=== PATIENT | male | born 1940 | race Two or more races ===

== ENCOUNTER 2024-07-10 18:29 | Inpatient (IN) | payer OTHER ==
[~2024-07-10] VITALS: Ht 172.7 cm; Wt 64.9 kg
[2024-07-10] MEDS ORDERED: TDAP [DIPH/PERTUSSIS/TET] 0.5 ML VIAL IM ONE (19:17)
[2024-07-10] MEDS: IV NS 0.9% 1,000 ML BAG IV ONE (19:29)
[2024-07-10] MEDS: TDAP [DIPH/PERTUSSIS/TET] 0.5 ML VIAL IM ONE (19:29)
[2024-07-10] MEDS ORDERED: LIDOCAINE/PRILOCAINE (5GM) 5 GM TUBE TP ONE (19:42)
[2024-07-10] MEDS: LIDOCAINE/PRILOCAINE 1 EA KIT TP ONE (19:45)
[2024-07-10] MEDS ORDERED: NICARDIPINE IN DEXTROSE,ISO-OS 200 ML IV ONE ×2 (19:54→23:43)
[2024-07-10] MEDS: NICARDIPINE IN NACL, ISO-OSM 200 ML IV PRN (20:01)
[2024-07-10] MEDS ORDERED: LEVETIRACETAM (500MG) 500 MG/5 ML VIAL IV ONE (20:19)
[2024-07-10] MEDS: LEVETIRACETAM (500MG) 500 MG in IV NS 0.9% 100 ML IV STA (20:22)
[2024-07-10 20:25] LABS: BASOPHILS % (AUTO) 0.9 % (0.0-2.0); EOSINOPHILS # (AUTO) 0.1 K/uL (0.0-0.7); EOSINOPHILS % (AUTO) 2.4 % (0.0-6.0); HEMATOCRIT 44 % (39-51); LYMPHOCYTES # (AUTO) 0.6 K/uL (0.8-4.8); LYMPHOCYTES % (AUTO) 20.7 % (20.0-44.0); MEAN CORPUSCULAR HEMOGLOBIN 29 PG (26.0-33.0); MEAN CORPUSCULAR HGB CONC 32 g/dl (31.0-36.0); MEAN CORPUSCULAR VOLUME 92 fL (80-96); MONOCYTES # (AUTO) 0.3 K/uL (0.1-1.30); MONOCYTES % (AUTO) 8.6 % (2.0-12.0); NEUTROPHILS % (AUTO) 67.4 % (43.0-81.0); PLATELET COUNT (AUTO) 198 K/uL (150-450); RED CELL DISTRIBUTION WIDTH 14.7 % (11.5-15.0)
[2024-07-10 20:37] LABS: CALCIUM, SERUM 8.9 mg/dL (8.5-10.1); CARBON DIOXIDE 26 mmol/L (21-32); CHLORIDE 104 mmol/L (98-107); CREATININE 1.2 mg/dL (0.6-1.3); GLUCOSE 87 mg/dL (74-106); POTASSIUM 3.8 mmol/L (3.5-5.1); SODIUM SERUM 138 mmol/L (136-145); UREA NITROGEN, BLOOD 14 mg/dL (7-18)
[2024-07-10 20:47] LABS: INR 1.07 (0.91-1.10)
[2024-07-10 20:48] LABS: PARTIAL THROMBOPLASTIN TIME 24.6 SEC (24.3-34.3)
[2024-07-10] MEDS ORDERED: MAGNESIUM HYDROXIDE 30 ML UDC PO PRN (22:30)
[2024-07-10] MEDS ORDERED: Z GUARD REMEDY 4 OZ OINT TP PRN (22:30)
[2024-07-10] MEDS ORDERED: ONDANSETRON HCL/PF 4 MG/2 ML VIAL IVP PRN (22:30)
[2024-07-11] VITALS (15 sets, daily range): BP systolic 102–164; BP diastolic 49–90; TEMP 97.6–98.1; O2SAT 98–100
[2024-07-11] MEDS: NICARDIPINE IN DEXTROSE,ISO-OS 200 ML IV ONE (04:28)
[2024-07-11] MEDS ORDERED: PANTOPRAZOLE 40 MG TABLET.DR PO ONE (07:41)
[2024-07-11] MEDS: PANTOPRAZOLE 40 MG TABLET.DR PO SCH (07:45)
[2024-07-11 17:02] LABS: BASOPHILS % (AUTO) 0.8 % (0.0-2.0); EOSINOPHILS # (AUTO) 0.2 K/uL (0.0-0.7); EOSINOPHILS % (AUTO) 4.9 % (0.0-6.0); HEMATOCRIT 39 % (39-51); HEMOGLOBIN 12.8 g/dL (13.5-17.5); LYMPHOCYTES # (AUTO) 0.8 K/uL (0.8-4.8); LYMPHOCYTES % (AUTO) 20.6 % (20.0-44.0); MEAN CORPUSCULAR HEMOGLOBIN 29 PG (26.0-33.0); MEAN CORPUSCULAR HGB CONC 33 g/dl (31.0-36.0); MEAN CORPUSCULAR VOLUME 88 fL (80-96); MONOCYTES # (AUTO) 0.7 K/uL (0.1-1.30); MONOCYTES % (AUTO) 16.9 % (2.0-12.0); NEUTROPHILS # (AUTO) 2.2 K/uL (1.8-8.9); NEUTROPHILS % (AUTO) 56.8 % (43.0-81.0); PLATELET COUNT (AUTO) 202 K/uL (150-450); RED BLOOD CELL COUNT(AUTO) 4.42 MIL/uL (4.5-6.0); RED CELL DISTRIBUTION WIDTH 14.1 % (11.5-15.0); WHITE BLOOD COUNT (AUTO) 3.9 K/uL (4.3-11.0)
[2024-07-11 17:36] LABS: CALCIUM, SERUM 8.8 mg/dL (8.5-10.1); CARBON DIOXIDE 26 mmol/L (21-32); CHLORIDE 104 mmol/L (98-107); GLUCOSE 80 mg/dL (74-106); MAGNESIUM 1.9 mg/dL (1.8-2.4); PHOSPHORUS 3.3 mg/dL (2.5-4.9); POTASSIUM 3.8 mmol/L (3.5-5.1); SODIUM SERUM 137 mmol/L (136-145); UREA NITROGEN, BLOOD 13 mg/dL (7-18)
[2024-07-12] VITALS (9 sets, daily range): BP systolic 94–210; BP diastolic 50–88; TEMP 97.3–98.5; O2SAT 94–100
[2024-07-12 08:00] LABS: BASOPHILS % (AUTO) 0.6 % (0.0-2.0); EOSINOPHILS # (AUTO) 0.1 K/uL (0.0-0.7); EOSINOPHILS % (AUTO) 4.4 % (0.0-6.0); HEMATOCRIT 39 % (39-51); HEMOGLOBIN 13.1 g/dL (13.5-17.5); LYMPHOCYTES # (AUTO) 1.2 K/uL (0.8-4.8); LYMPHOCYTES % (AUTO) 34.9 % (20.0-44.0); MEAN CORPUSCULAR HEMOGLOBIN 29 PG (26.0-33.0); MEAN CORPUSCULAR HGB CONC 33 g/dl (31.0-36.0); MEAN CORPUSCULAR VOLUME 87 fL (80-96); MONOCYTES # (AUTO) 0.4 K/uL (0.1-1.30); MONOCYTES % (AUTO) 13.2 % (2.0-12.0); NEUTROPHILS # (AUTO) 1.6 K/uL (1.8-8.9); NEUTROPHILS % (AUTO) 46.9 % (43.0-81.0); PLATELET COUNT (AUTO) 219 K/uL (150-450); RED BLOOD CELL COUNT(AUTO) 4.48 MIL/uL (4.5-6.0); RED CELL DISTRIBUTION WIDTH 14.4 % (11.5-15.0); WHITE BLOOD COUNT (AUTO) 3.4 K/uL (4.3-11.0)
[2024-07-12 08:21] LABS: ALANINE AMINOTRANSFERASE 19 U/L (12-78); ALBUMIN 2.8 g/dL (3.4-5.0); ALKALINE PHOSPHATASE 79 U/L (46-116); ASPARTATE AMINOTRANSFERASE 21 U/L (15-37); BILIRUBIN,TOTAL 0.6 mg/dL (0.2-1.0); CALCIUM, SERUM 8.5 mg/dL (8.5-10.1); CARBON DIOXIDE 26 mmol/L (21-32); CHLORIDE 105 mmol/L (98-107); CREATININE 0.9 mg/dL (0.6-1.3); GLUCOSE 72 mg/dL (74-106); MAGNESIUM 1.8 mg/dL (1.8-2.4); PHOSPHORUS 2.8 mg/dL (2.5-4.9); POTASSIUM 3.8 mmol/L (3.5-5.1); SODIUM SERUM 139 mmol/L (136-145); TOTAL PROTEIN, SERUM 6.1 g/dL (6.4-8.2); UREA NITROGEN, BLOOD 14 mg/dL (7-18)
[2024-07-12] MEDS: IV NS 0.9% 1,000 ML IV PRN (09:12)
[2024-07-12] MEDS ORDERED: IOHEXOL-350 100 ML VIAL IV ONE ×2 (16:01→16:17)
[2024-07-12 16:56] LABS: BASOPHILS % (AUTO) 0.3 % (0.0-2.0); EOSINOPHILS % (AUTO) 0.7 % (0.0-6.0); HEMATOCRIT 44 % (39-51); HEMOGLOBIN 14.4 g/dL (13.5-17.5); LYMPHOCYTES # (AUTO) 0.7 K/uL (0.8-4.8); LYMPHOCYTES % (AUTO) 13.9 % (20.0-44.0); MEAN CORPUSCULAR HEMOGLOBIN 29 PG (26.0-33.0); MEAN CORPUSCULAR HGB CONC 33 g/dl (31.0-36.0); MEAN CORPUSCULAR VOLUME 89 fL (80-96); MONOCYTES # (AUTO) 0.5 K/uL (0.1-1.30); MONOCYTES % (AUTO) 9.2 % (2.0-12.0); NEUTROPHILS % (AUTO) 75.9 % (43.0-81.0); PLATELET COUNT (AUTO) 217 K/uL (150-450); RED CELL DISTRIBUTION WIDTH 14.4 % (11.5-15.0); WHITE BLOOD COUNT (AUTO) 5.3 K/uL (4.3-11.0)
[2024-07-12 17:02] LABS: CARBON DIOXIDE 21 mmol/L (21-32); CHLORIDE 100 mmol/L (98-107); GLUCOSE 165 mg/dL (74-106); POTASSIUM 3.4 mmol/L (3.5-5.1); SODIUM SERUM 135 mmol/L (136-145); UREA NITROGEN, BLOOD 14 mg/dL (7-18)
[2024-07-12 17:07] LABS: INR 1.12 (0.91-1.10); PARTIAL THROMBOPLASTIN TIME 27.1 SEC (24.3-34.3); PROTHROMBIN TIME 11.8 SECS (9.2-11.1)
[2024-07-12 17:36] LABS: CHOLESTEROL 229 mg/dL (<200); HDL CHOLESTEROL 78 mg/dL (40-60); LDL 127 mg/dL (0-99); TRIGLYCERIDES 83 mg/dL (30-150)
[2024-07-12] MEDS: METOPROLOL TARTRATE 25 MG TABLET PO SCH (18:58)
[2024-07-12] MEDS ORDERED: NIMODIPINE (30MG) 30 MG CAPSULE ONE (20:28)
[2024-07-12] MEDS: NIMODIPINE (30MG) 30 MG CAPSULE PO SCH (20:31)
[2024-07-12] MEDS: ATORVASTATIN 10 MG TABLET PO SCH (22:40)
[2024-07-13] VITALS (22 sets, daily range): BP systolic 97–189; BP diastolic 49–140; TEMP 97.5–98.9; O2SAT 92–99
[2024-07-13] MEDS: ASPIRIN EC 81 MG TABLET.DR PO SCH (06:53)
[2024-07-13] MEDS: MAG HYDROX/AL HYDROX/SIMETH 30 ML UDC PO PRN (20:16)
[2024-07-13] MEDS: ZOLPIDEM TARTRATE 5 MG TABLET PO PRN (23:22)
[2024-07-14] VITALS (14 sets, daily range): BP systolic 114–198; BP diastolic 62–102; TEMP 98.1–98.4; O2SAT 85–100
[2024-07-14 05:13] LABS: ALANINE AMINOTRANSFERASE 23 U/L (12-78); ALBUMIN 3.1 g/dL (3.4-5.0); ALKALINE PHOSPHATASE 91 U/L (46-116); ASPARTATE AMINOTRANSFERASE 33 U/L (15-37); BILIRUBIN,TOTAL 0.6 mg/dL (0.2-1.0); CALCIUM, SERUM 8.3 mg/dL (8.5-10.1); CARBON DIOXIDE 24 mmol/L (21-32); CHLORIDE 102 mmol/L (98-107); CREATININE 1.4 mg/dL (0.6-1.3); GLUCOSE 110 mg/dL (74-106); MAGNESIUM 1.9 mg/dL (1.8-2.4); PHOSPHORUS 2.2 mg/dL (2.5-4.9); POTASSIUM 3.2 mmol/L (3.5-5.1); SODIUM SERUM 138 mmol/L (136-145); TOTAL PROTEIN, SERUM 7.3 g/dL (6.4-8.2); UREA NITROGEN, BLOOD 23 mg/dL (7-18)
[2024-07-14 05:19] LABS: HEMATOCRIT 44 % (39-51); HEMOGLOBIN 14.1 g/dL (13.5-17.5); LYMPHOCYTES # (AUTO) 0.3 K/uL (0.8-4.8); LYMPHOCYTES % (AUTO) 2.7 % (20.0-44.0); MEAN CORPUSCULAR HEMOGLOBIN 28 PG (26.0-33.0); MEAN CORPUSCULAR HGB CONC 32 g/dl (31.0-36.0); MEAN CORPUSCULAR VOLUME 89 fL (80-96); MONOCYTES # (AUTO) 1.9 K/uL (0.1-1.30); MONOCYTES % (AUTO) 15.2 % (2.0-12.0); NEUTROPHILS # (AUTO) 10.1 K/uL (1.8-8.9); NEUTROPHILS % (AUTO) 82.1 % (43.0-81.0); PLATELET COUNT (AUTO) 199 K/uL (150-450); RED BLOOD CELL COUNT(AUTO) 4.95 MIL/uL (4.5-6.0); RED CELL DISTRIBUTION WIDTH 14.1 % (11.5-15.0); WHITE BLOOD COUNT (AUTO) 12.3 K/uL (4.3-11.0)
[2024-07-14] MEDS: ACETAMINOPHEN 325 MG TABLET PO PRN (08:07)
[2024-07-14] MEDS: LABETALOL HCL IV 100MG VIAL IV PRN (09:51)
[2024-07-14] MEDS: POTASSIUM CHLORIDE 20 MEQ TAB.PRT.SR PO SCH (10:11)
[2024-07-14 11:42] LABS: BAND % (MANUAL) 6 % (0.0-5.0); BASOPHILS % (MANUAL) 0 % (0.0-2.0); EOSINOPHILS % (MANUAL) 0 % (0-4); LYMPHOCYTES % (MANUAL) 2 % (16-48); MONOCYTES % (MANUAL) 17 % (0-11.0); NEUTROPHILS % (MANUAL) 75 (42-76)
[2024-07-14 11:43] LABS: ANISOCYTOSIS 1+; PLATELET ESTIMATE ADEQUATE
[2024-07-14] MEDS: K PHOS NEUTRAL 250 MG TABLET PO ONE (17:47)
[2024-07-15 04:20] VITALS: BP 160/90; TEMP 98.1; O2SAT 98
[2024-07-15 04:57] VITALS: BP 147/69; TEMP 98.1; O2SAT 98
[2024-07-15 05:21] VITALS: BP 147/69; TEMP 98.1; O2SAT 98
[2024-07-15 07:00] VITALS: BP 148/66; TEMP 97.9; O2SAT 97
[2024-07-15 07:00] LABS: BASOPHILS % (AUTO) 0.1 % (0.0-2.0); EOSINOPHILS % (AUTO) 0.3 % (0.0-6.0); HEMATOCRIT 44 % (39-51); HEMOGLOBIN 14.8 g/dL (13.5-17.5); LYMPHOCYTES # (AUTO) 0.3 K/uL (0.8-4.8); LYMPHOCYTES % (AUTO) 2.9 % (20.0-44.0); MEAN CORPUSCULAR HEMOGLOBIN 29 PG (26.0-33.0); MEAN CORPUSCULAR HGB CONC 34 g/dl (31.0-36.0); MEAN CORPUSCULAR VOLUME 87 fL (80-96); MONOCYTES # (AUTO) 1.1 K/uL (0.1-1.30); MONOCYTES % (AUTO) 11.6 % (2.0-12.0); NEUTROPHILS # (AUTO) 8.4 K/uL (1.8-8.9); NEUTROPHILS % (AUTO) 85.1 % (43.0-81.0); PLATELET COUNT (AUTO) 214 K/uL (150-450); RED BLOOD CELL COUNT(AUTO) 5.07 MIL/uL (4.5-6.0); RED CELL DISTRIBUTION WIDTH 14.4 % (11.5-15.0); WHITE BLOOD COUNT (AUTO) 9.8 K/uL (4.3-11.0)
[2024-07-15 07:26] LABS: ALBUMIN 2.4 g/dL (3.4-5.0); BILIRUBIN,TOTAL 0.8 mg/dL (0.2-1.0); CALCIUM, SERUM 8.5 mg/dL (8.5-10.1); CREATININE 1.2 mg/dL (0.6-1.3); MAGNESIUM 2.8 mg/dL (1.8-2.4); PHOSPHORUS 2.1 mg/dL (2.5-4.9); POTASSIUM 3.5 mmol/L (3.5-5.1); TOTAL PROTEIN, SERUM 6.8 g/dL (6.4-8.2)
[2024-07-15 16:00] VITALS: BP 160/93; TEMP 98.2; O2SAT 94
[2024-07-15] MEDS: K PHOS NEUTRAL 250 MG TABLET PO ONE (17:05)
[2024-07-15 20:00] VITALS: BP 102/67; TEMP 97.7; O2SAT 95
[2024-07-16] VITALS: BP 103/66; TEMP 97.9; O2SAT 96
[2024-07-16] MEDS ORDERED: DEXTROSE 50%-WATER 50 ML DISP.SYRIN ONE (03:48)
[2024-07-16] MEDS ORDERED: ATROPINE SULFATE 1 MG/10 ML DISP.SYRIN IV ONE (04:09)
[2024-07-16 08:08] LABS: PTH, INTACT 68 pg/mL (15-65)
[2024-07-17 15:11] LABS: *SPE A/G RATIO 0.7 (0.7-1.7); *SPE ALBUMIN 2.3 g/dL (2.9-4.4); *SPE ALPHA-1-GLOBULIN 0.6 g/dL (0.0-0.4); *SPE GLOBULIN, TOTAL 3.3 g/dL (2.2-3.9); *SPE M-SPIKE 0.1 g/dL (Not Observed); *SPE PROTEIN TOTAL 5.6 g/dL (6.0-8.5); *SPEGAMMA GLOBULIN 0.7 g/dL (0.4-1.8)
== END 2024-07-16 04:10 | DRG 83 ==
LOC: ER 18:58 → ICU 07-11 05:44 → TELE1 07-11 15:30 → ICUOV 07-12 21:31 → ICU 07-13 16:23 → TELE 07-14 11:03
PROVIDERS: ADMIT Student in an Organized Health Care Education/Training Program; ATTEND Nurse Practitioner Acute Care
PROC: 0BH17EZ Insertion of Endotracheal Airway into Trachea, Via Natural or Artificial Opening (ICD-10-PCS; principal; 2024-07-16)
PROC: 5A12012 Performance of Cardiac Output, Single, Manual (ICD-10-PCS; 2024-07-16)
PROC: 5A12012 Performance of Cardiac Output, Single, Manual (ICD-10-PCS; 2024-07-16)
PROC: 0BH17EZ Insertion of Endotracheal Airway into Trachea, Via Natural or Artificial Opening (ICD-10-PCS; 2024-07-16)
DX: S06.5X9A Traumatic subdural hemorrhage with loss of consciousness of unspecified duration, initial encounter (principal); N17.9 Acute kidney failure, unspecified; S06.6X9A Traumatic subarachnoid hemorrhage with loss of consciousness of unspecified duration, initial encounter; W03.XXXA Other fall on same level due to collision with another person, initial encounter; Y04.0XXA Assault by unarmed brawl or fight, initial encounter; G93.89 Other specified disorders of brain; D69.6 Thrombocytopenia, unspecified; Z86.73 Personal history of transient ischemic attack (TIA), and cerebral infarction without residual deficits; E87.6 Hypokalemia; M89.8X9 Other specified disorders of bone, unspecified site; Y92.512 Supermarket, store or market as the place of occurrence of the external cause
CPT/HCPCS: 36415; 70450-TC; 70496-TC; 70498-TC; 71045-TC; 76770-TC; 80048-TC; 80053-TC; 80061-TC; 82550-TC; 82962-TC; 83735-TC; 83970; 84100-TC; 84155; 84165; 84484-TC; 85025-TC; 85610-TC; 85730-TC; 86850-TC; 90715; 92526; 92611-TC; 92950-TC; 94799-TC; 97110-TC; 97116-TC; 97530-TC; 97535-TC; A4223; A6403; G0378; J0171; J0461; J1953; J3490; J7030; Q9967